=== PATIENT | male | born 1970 | race Caucasian/White ===

== ENCOUNTER 2021-04-04 22:45 | Emergency (ER) | payer BC ==
[2021-04-04] MEDS ORDERED: FLOMAX0.4 MG PO (22:54)
[2021-04-04] MEDS ORDERED: ZESTRIL40 M1 PO (22:54)
[2021-04-04] MEDS ORDERED: ODEFSEY TABLET1 EACH PO (22:55)
[2021-04-04] MEDS ORDERED: LEXAPRO20 M1 PO (22:55)
[2021-04-04] MEDS ORDERED: LIPITOR 40MG TA40 MG PO (22:55)
[2021-04-04] MEDS ORDERED: CLEOCIN HCL150 M1 PO (23:23)
[2021-04-05 00:10] VITALS: BP 167/118
== END 2021-04-05 00:10 | disposition home or self-care (01) ==
LOC: ED 22:45
DX: L03.116 Cellulitis of left lower limb (principal); I10 Essential (primary) hypertension; E78.5 Hyperlipidemia, unspecified; B20 Human immunodeficiency virus [HIV] disease; F17.210 Nicotine dependence, cigarettes, uncomplicated; Z79.899 Other long term (current) drug therapy

== ENCOUNTER → 2021-06-10 | Outpatient (CLI) | payer BC ==
[~2021-06-10] MED LIST: CLEOCIN HCL150 M1 PO; FLOMAX0.4 MG PO; LEXAPRO20 M1 PO; LIPITOR 40MG TA40 MG PO; ODEFSEY TABLET1 EACH PO; ZESTRIL40 M1 PO
== END ==
LOC: RAD 15:38
DX: M25.572 Pain in left ankle and joints of left foot (principal); W19.XXXA Unspecified fall, initial encounter